=== PATIENT | female | born 1995 | race African-American/Black ===

== ENCOUNTER 2024-09-10 21:26 | Emergency (ER) | payer MEDICAID, SELFPAY ==
[2024-09-10 21:28] VITALS: BMI 40.2
[2024-09-10 21:47] VITALS: BP 136/87; PULSE 117; RESP 18; TEMP 39.2; O2SAT 96
--- NOTE | 2024-09-10 21:50 | XR_ITS ---
Examination: PA lateral chest 2 views TECHNIQUE: Upright PA lateral chest 2 views Exam date and time: September 10, 2024 1003 p.M. INDICATIONS: Coughing beginning 4 days ago. FINDINGS: Normal heart size Reduced inspiratory effort No lobar pneumonia No pulmonary edema IMPRESSION: No pneumonia identified
--- NOTE | 2024-09-10 21:50 | PD.EDRME ---
Rapid Medical Screening Exam [facility] Arrival date/time: 09/10/24 21:26 29-year-old female with no known medical history presents to the emergency room with a chief complaint of fever, cough, congestion x 3 days. Patient also states she has swelling tenderness and warmth to her left breast from breast-feeding. I have greeted and performed a focused initial assessment of this patient. A comprehensive ED assessment and evaluation of the patient, analysis of all test results, and completion of the medical decision making process will be conducted by additional ED providers. Chief Complaint: Chest Pain Vital signs: Vital Signs Temperature 102.5 F H 09/10/24 21:47 Pulse Rate 117 H 09/10/24 21:47 Respiratory Rate 18 09/10/24 21:47 Blood Pressure 136/87 H 09/10/24 21:47 Pulse Oximetry (%) 96 09/10/24 21:47 Oxygen Delivery Method Room Air 09/10/24 21:47 Vital signs reviewed by provider: Yes
[2024-09-10 21:58] VITALS: TEMP 39.2
[2024-09-10] MEDS: ACETAMINOPHEN 500 MG TABLET 1000 MG PO (21:58)
[2024-09-10 22:22] LABS: Lactate (Lactic Acid) 1.4 mMol/L (0.4-2.0)
[2024-09-10 22:24] LABS: Basophils # (Auto) 0.1 Thou/mm3 (0.0-0.2); Basophils % (Auto) 1 % (0-2.5); Eosinophils # (Auto) 0.3 Thou/mm3 (0.0-0.5); Eosinophils % (Auto) 2 % (0-10); Hematocrit 36.7 % (36.0-46.0); Hemoglobin 12.1 g/dL (12.0-16.0); Immature Granulocytes % (Auto) 1 % (0-0); Immature Granulocytes Auto 0.07 Thou/mm3 (0.00-0.00); Lymphocytes % (Auto) 19 % (10-50); Mean Corpuscular Hemoglobin 24.6 pg (25.0-35.0); Mean Corpuscular Volume 75 fL (80-100); Monocytes % (Auto) 10 % (0-12); Neutrophils # (Auto) 7.1 Thou/mm3 (1.8-7.7); Neutrophils % (Auto) 68 % (37-80); Nucleated Red Blood Cell % 0 /100 WBC (0); Platelet Count 331 Thou/mm3 (140-440); RDW Standard Deviation 37.7 fL (36.4-46.3); Red Blood Count 4.91 Miln/mm3 (4.00-5.20); White Blood Count 10.5 Thou/mm3 (3.6-11.0)
[2024-09-10 22:54] LABS: Alanine Aminotransferase 101 U/L (10-49); Albumin/Globulin Ratio 1.5 (1.2-2.2); Alkaline Phosphatase 121 U/L (46-116); Anion Gap 12 (7-16); Aspartate Amino Transferase 72 U/L (0-34); BUN/Creatinine Ratio 11 Ratio (12-20); Bilirubin,Total 0.4 mg/dL (0.3-1.2); Blood Urea Nitrogen 10 mg/dL (9-23); Calcium 10.3 mg/dL (8.3-10.6); Calcium (Corrected) 10.3 mg/dL (8.5-10.1); Carbon Dioxide 22.7 mMol/L (20.0-31.0); Chloride 102 mMol/L (98-107); Creatinine (Component) 0.9 mg/dL (0.6-1.3); Globulin 3.3 gm/dL (2.3-3.5); Glucose 116 mg/dL (74-106); Osmolality,Calculated 273 (275-295); Potassium 3.6 mMol/L (3.4-5.1); Procalcitonin 0.08 ng/ml (0.0-0.49); Sodium 137 mMol/L (136-145); Total Protein 8.3 gm/dL (5.7-8.2); eGFR > 60 See Note
[2024-09-10 23:59] LABS: Collection Type, Urine Clean Catch
[2024-09-11 00:14] LABS: Bilirubin,Urine Negative (Negative); Blood,Urine Negative (Negative); Clarity,Urine Turbid (Clear/Hazy); Color,Urine Yellow (Lt Yel-Yel); Glucose, Urine Negative (Negative); Ketones,Urine Trace (Negative); Leukocyte Esterase,Urine Positive (Negative); Nitrite,Urine Negative (Negative); PH,Urine 6.5 (5.0-7.0); Protein,Urine 1+ (Neg - Trace); RBC,Urine 7 /hpf (0-3); Specific Gravity,Urine 1.043 (1.001-1.035); Squamous Epithelial Cell,Urine 11 /hpf (0-5); WBC,Urine 5 /hpf (0-5)
[2024-09-11 00:20] VITALS: BP 141/87; PULSE 105; RESP 18; TEMP 37.2; O2SAT 95
[2024-09-11 00:26] VITALS: TEMP 37.2
--- NOTE | 2024-09-11 02:16 | PC.NURSE ---
Patient requesting to leave, states she has children at home and is not able to wait any longer. Encouraged patient to wait to be seen by MD, However patient states she feels better and can no longer wait. Patient Alert and oriented. Resp even and unlabored. No acute distress noted. Consequences explained of leaving before being seen by MD including up to even . Patient verbalized understanding and continues to choose to leave. Encouraged patient to follow up with primary MD and if worsening symptoms to return to ED.
== END 2024-09-11 02:23 | disposition left against medical advice (07) ==
PROVIDERS: Nurse Practitioner Family; Emergency Provider Emergency Medicine; PCP Nurse Practitioner Family
DX: R50.9 Fever, unspecified (principal); R05.9 Cough, unspecified; R09.81 Nasal congestion; R07.9 Chest pain, unspecified; Z53.29 Procedure and treatment not carried out because of patient's decision for other reasons
CPT/HCPCS: 36415; 71046; 80053; 81001; 83605; 84145; 85025; 87040; 87086; 87400; 87811; 99281; A9270

== ENCOUNTER 2025-03-20 11:09 | Emergency (ER) | payer MEDICAID, SELFPAY ==
[2025-03-20 11:09] VITALS: BMI 40.9
[2025-03-20 11:19] VITALS: BP 122/87; PULSE 70; RESP 18; TEMP 36.8; O2SAT 96; BMI 41.1
--- NOTE | 2025-03-20 11:26 | XR_ITS ---
Examination: Abdomen sonogram, Limited Date and time of exam: March 20, 2025, 1132 hrs. Indications: Epigastric pain nausea vomiting beginning 5 days ago Technique: Real-time sandy scale transabdominal sonographic images of the upper abdomen obtained. Findings: Negative for gallstones Gallbladder wall 0.47 cm Common bile duct 0.2 cm Pancreatic head 2.8 cm Liver 15 cm smooth contour fatty infiltration Normal hepatopedal portal venous oh Patent IVC Impression: Suspicious for cholecystitis, recommend HIDA scan or MRCP follow-up
--- NOTE | 2025-03-20 11:27 | PD.EDRME ---
Rapid Medical Screening Exam [facility]ME Arrival date/time: 03/20/25 11:09 29-year-old female with no known medical history presents to the emergency room with a chief complaint of 8 out of 10 epigastric pain that radiates to the right upper quadrant x 5 days. Patient also states she is having some dysuria. I have greeted and performed a focused initial assessment of this patient. A comprehensive ED assessment and evaluation of the patient, analysis of all test results, and completion of the medical decision making process will be conducted by additional ED providers. Chief Complaint: Abdominal Pain Time Seen by Provider: 03/20/25 11:16 Vital signs: Vital Signs Temperature 98.3 F 03/20/25 11:19 Pulse Rate 70 03/20/25 11:19 Respiratory Rate 18 03/20/25 11:19 Blood Pressure 122/87 H 03/20/25 11:19 Pulse Oximetry (%) 96 03/20/25 11:19 Oxygen Delivery Method Room Air 03/20/25 11:19 Vital signs reviewed by provider: Yes
[2025-03-20] MEDS: ONDANSETRON ODT 4 MG TABRAP PO (11:46)
[2025-03-20] MEDS: HYDROcodone/APAP 5/325 TABLET 1 TAB PO (11:46)
[2025-03-20 11:52] LABS: Collection Type, Urine Clean Catch
[2025-03-20 11:59] LABS: Bilirubin,Urine Negative (Negative); Blood,Urine Negative (Negative); Clarity,Urine Clear (Clear/Hazy); Color,Urine Colorless (Lt Yel-Yel); Glucose, Urine Negative (Negative); Ketones,Urine Negative (Negative); Leukocyte Esterase,Urine Positive (Negative); Nitrite,Urine Negative (Negative); PH,Urine 7.0 (5.0-7.0); Protein,Urine Negative (Neg - Trace); RBC,Urine 1 /hpf (0-3); Specific Gravity,Urine 1.011 (1.001-1.035); Squamous Epithelial Cell,Urine 4 /hpf (0-5); Urobilinogen,Urine Negative mg/dL (0.0-1.0); WBC,Urine 9 /hpf (0-5)
[2025-03-20 12:07] LABS: HCG Qualitative,Urine Negative
[2025-03-20 12:20] LABS: Basophils # (Auto) 0.0 Thou/mm3 (0.0-0.2); Basophils % (Auto) 1 % (0-2.5); Eosinophils # (Auto) 0.2 Thou/mm3 (0.0-0.5); Eosinophils % (Auto) 3 % (0-10); Hematocrit 37.5 % (36.0-46.0); Hemoglobin 11.7 g/dL (12.0-16.0); Immature Granulocytes Auto 0.01 Thou/mm3 (0.00-0.00); Lymphocytes # (Auto) 2.4 Thou/mm3 (1.0-4.8); Lymphocytes % (Auto) 44 % (10-50); Mean Corpuscular HGB Conc 31.2 g/dl (31.0-37.0); Mean Corpuscular Hemoglobin 24.4 pg (25.0-35.0); Mean Corpuscular Volume 78 fL (80-100); Monocytes # (Auto) 0.4 Thou/mm3 (0.0-0.8); Monocytes % (Auto) 6 % (0-12); Neutrophils # (Auto) 2.5 Thou/mm3 (1.8-7.7); Neutrophils % (Auto) 46 % (37-80); Nucleated Red Blood Cell # 0.00 Thou/mm3 (0.00-0.00); Nucleated Red Blood Cell % 0 /100 WBC (0); Platelet Count 312 Thou/mm3 (140-440); RDW Standard Deviation 44.8 fL (36.4-46.3); Red Blood Count 4.80 Miln/mm3 (4.00-5.20); White Blood Count 5.5 Thou/mm3 (3.6-11.0)
[2025-03-20 13:11] LABS: Alanine Aminotransferase 26 U/L (10-49); Albumin, Serum 4.4 gm/dL (3.5-5.0); Albumin/Globulin Ratio 1.8 (1.2-2.2); Alkaline Phosphatase 81 U/L (46-116); Anion Gap 7 (7-16); Aspartate Amino Transferase 17 U/L (0-34); BUN/Creatinine Ratio 8 Ratio (12-20); Bilirubin,Total 0.3 mg/dL (0.3-1.2); Blood Urea Nitrogen 6 mg/dL (9-23); Calcium 9.1 mg/dL (8.3-10.6); Calcium (Corrected) 9.1 mg/dL (8.5-10.1); Carbon Dioxide 26.7 mMol/L (20.0-31.0); Chloride 107 mMol/L (98-107); Creatinine (Component) 0.8 mg/dL (0.6-1.3); Estimated Creatinine Clearance 115.1 mL/min (>60); Globulin 2.5 gm/dL (2.3-3.5); Glucose 98 mg/dL (74-106); Lipase 35 U/L (12-53); Osmolality,Calculated 278 (275-295); Potassium 4.0 mMol/L (3.4-5.1); Sodium 141 mMol/L (136-145); Total Protein 6.9 gm/dL (5.7-8.2); eGFR > 60 See Note
[2025-03-20 14:42] VITALS: BP 154/100; PULSE 72; RESP 18; TEMP 36.6; O2SAT 98
--- NOTE | 2025-03-20 15:14 | PC.NURSE ---
PT REPORTS SHE IS HAVING 5/10 ABD PAIN AT THIS TIME. REPORTS SHE GOT MEDICATION EARLIER THAT DID HELP A LITTLE HOWEVER, THE PAIN IS STILL THERE. PT AWAITING EVALUATION FROM ED PROVIDER FOR FURTHER POC. CALL JEFF IN [place] ON TELE.
--- NOTE | 2025-03-20 15:33 | PD.EDABDPN ---
ED Abdominal Pain RME/HPI General Chief Complaint: Abdominal Pain Stated complaint: ABD PAIN X 5 DAYS; TODAY THE WORST Time seen by provider: 03/20/25 11:16 Arrival date/time: 03/20/25 11:09 Limitations: no limitations RME / HPI RME / HPI narrative: 03/20/25 11:09 29-year-old female with no known medical history presents to the emergency room with a chief complaint of 8 out of 10 epigastric pain that radiates to the right upper quadrant x 5 days. Patient also states she is having some dysuria. I have greeted and performed a focused initial assessment of this patient. A comprehensive ED assessment and evaluation of the patient, analysis of all test results, and completion of the medical decision making process will be conducted by additional ED providers. DR. ROJAS MAIN ED EVALUATION: 29 year old female presents to the ED for intermittent abdominal pain beginning 5 days ago. States episodes last 20 minutes and are described as aching in sensation, localized to the epigastric region, rating as moderate. Temporarily relieved with Tylenol and Ibuprofen. Patient reports she has had no change in appetite and ate nano today. However, noticed pain beginning ~ 1 hour after eating. Denies any fevers, chills, chest pain, cough, shortness of breath, vomiting, diarrhea, or urinary symptoms. Related Data Home Medications ?Medication ?Instructions ?Recorded ?Confirmed vits no.126-ferrous fum 1 tab PO QDAY 10/16/23 10/16/23 28 mg iron-folic acid 800 mcg tablet (Classic ) Allergies Allergy/AdvReac Type Severity Reaction Status Date / Time pineapple Allergy Severe Anaphylaxis Verified 03/20/25 11:11 Review of Systems Review of Systems Systems Reviewed: All systems reviewed, normal except as documented Past Medical History Past Medical History CARDIAC: Negative Congestive Heart Failure RESPIRATORY: Negative Chronic Obstructive Pulmonary Disease (COPD) GENITOURINARY: Negative Renal Disease ENDOCRINE: Negative Diabetes Mellitus Type 1 or Diabetes Mellitus Type 2 Social History SMOKING STATUS: Never smoker ED Exam General Limitations: Present no limitations General appearance: Present alert, in no apparent distress and obese Head Head exam: Present atraumatic, normocephalic and normal inspection Eye Eye exam: Present normal appearance, PERRL and EOMI ENT ENT exam: Present normal exam, normal oropharynx and mucous membranes moist Neck Neck exam: Present normal inspection, full ROM and trachea midline Chest Chest inspection: Present normal inspection and symmetric chest wall rise Respiratory Respiratory exam: Present normal lung sounds bilaterally Cardiovascular Cardiovascular exam: Present regular rate, normal rhythm and normal heart sounds Abdominal Exam Abdominal exam: Present soft, tenderness (epigastric tenderness to palpation, no mass ) and normal bowel sounds; Absent distention, guarding, rebound or rigidity Extremities Exam Extremities exam: Present normal inspection and full ROM Back Exam Back exam: Present normal inspection and full ROM Neurological Exam Neurological exam: Present alert, oriented X3 and CN II-XII intact Psychiatric Psychiatric exam: Present normal affect and normal mood Skin Skin exam: Present warm, dry, intact and normal color Course Quality Measures none Orders Category Date Time Status CT Screening NOW Care 03/20/25 15:39 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 Care 03/20/25 15:38 Active Continuous Pulse Oximetry STAT Care 03/20/25 15:38 Completed Insert IV STAT Care 03/20/25 15:38 Active NPO STAT Care 03/20/25 15:[address] abdomen pelvis w con Stat Exams 03/20/25 15:38 Completed US gall bladder Stat Exams 03/20/25 11:26 Completed CBC Stat Lab 03/20/25 12:00 Completed CMP [Comprehensive Metabolic Panel] Stat Lab 03/20/25 12:00 Completed HCG Qualitative,Urine Stat Lab 03/20/25 11:25 Completed Lipase Stat Lab 03/20/25 12:00 Completed Prothrombin Time with INR Stat Lab 03/20/25 15:53 Completed UA [Urinalysis] Stat Lab 03/20/25 11:25 Completed Urinalysis Stat Lab 03/20/25 15:38 Ordered Urine Culture Stat Lab 03/20/25 11:25 Received HYDROcodone*/APAP 5/325 [[place] 5/325] Med 03/20/25 11:27 Discontinued 1 tab PO X1 ONE Morphine Inj Med 03/20/25 15:38 Discontinued 4 mg IVP X1 ONE Ondansetron Inj [Zofran Inj] Med 03/20/25 15:39 Discontinued 4 mg IVP X1 ONE Ondansetron Odt [Zofran Odt] Med 03/20/25 11:27 Discontinued 4 mg PO X1 ONE Sodium Chloride 0.9% 1000 ml [Ns] 1,000 ml Med 03/20/25 15:38 Discontinued IV 999 mls/hr Vital Signs Vital signs: Vital Signs Temperature 98.3 F 03/20/25 11:19 Pulse Rate 70 03/20/25 11:19 Respiratory Rate 18 03/20/25 11:19 Blood Pressure 122/87 H 03/20/25 11:19 Pulse Oximetry (%) 96 03/20/25 11:19 Oxygen Delivery Method Room Air 03/20/25 11:19 Pulse ox is 96% on room air which is adequate. Abdominal Pain MDM MDM Narrative MDM Narrative:: I, Aimee Saunders, am scribing for and in the presence of Dr. Rojas. The abdomen CT was unremarkable however the ultrasound was suspicious for cholecystitis. Advised the patient follow up tomorrow for MRCP. Patient data External records reviewed:: [facility] previous records (I reviewed ED visit on 10/22/2022 ) Clinical information provided by:: patient Social determinants that could affect healthcare access:: none Patient has the following chronic illnesses:: None reported How is presenting disease/condition affected by chronic disease/condition?: no chronic disease Evaluation data The following diagnostics were reviewed and interpreted by me:: lab results and radiology exam(s) Lab and/or radiology exams considered but not ordered:: None Interpretation Summary: Ordering Physician: Yossi Mead Date of Service: 03/20/25 Procedure(s): US gall bladder Accession Number(s): [id number] cc: Yossi Mead; Duglas Benton MD; Philippe Mcmahon MD~ Examination: Abdomen sonogram, Limited Date and time of exam: March 20, 2025, 1132 hrs. Indications: Epigastric pain nausea vomiting beginning 5 days ago Technique: Real-time sandy scale transabdominal sonographic images of the upper abdomen obtained. Findings: Negative for gallstones Gallbladder wall 0.47 cm Common bile duct 0.2 cm Pancreatic head 2.8 cm Liver 15 cm smooth contour fatty infiltration Normal hepatopedal portal venous oh Patent IVC Impression: Suspicious for cholecystitis, recommend HIDA scan or MRCP follow-up Dictated By: Duglas Benton MD Signed By: <Electronically signed by Duglas Benton MD in OV> 03/20/25 1154 Ordering Physician: Juan Rojas MD Date of Service: 03/20/25 Procedure(s): CT abdomen pelvis w con Accession Number(s): [id number] cc: Juan Rojas MD; Duglas Benton MD; Philippe Mcmahon MD~ Examination: CT abdomen with intravenous contrast CT pelvis with intravenous contrast 2-D coronal reconstructions 2-D sagittal reconstructions Date and time of exam:March 20, 2025 1641 hours INDICATIONS: Epigastric pain and abdominal pain nausea fever beginning 5 days ago. CTDI: vol (mGy) 13.9 DLP: (mGycm) 684. Technique: Multiple axial sections of the abdomen and pelvis have been obtained. 64 slice high-resolution scanner used. 3 mm axial sections have been obtained, post intravenous injection of 60 cc Isovue-370 2-D sagittal, coronal reconstructions obtained. Low dose protocols were performed. One or more of the following dose reduction techniques were used; automated exposure control, adjustment of the mA and/or KV according to patient size, use of iterative reconstruction technique. Findings: No focal liver or splenic lesions No gallstones No pancreatic mass 3.9 cm upper pole left renal cyst No renal or ureteral calculi, no hydronephrosis Aorta normal size Normal appendix Anteverted uterus No adnexal mass No bladder mass or bladder calculi No bowel obstruction No diverticulitis IMPRESSION: Negative for pancreatitis No renal or ureteral calculi Normal appendix No bowel obstruction diverticulitis or free air Dictated By: Duglas Benton MD Signed By: <Electronically signed by Duglas Benton MD in OV> 03/20/25 2727 Medications / Prescriptions Medications or Prescriptions considered but not ordered:: None Medication administrations:: Medication Administration History Discontinued Medications Hydrocodone Bitart/Acetaminophen (Hydrocodone/Apap 5/325 Tablet) 1 tab PO X1 ONE Stop: 03/20/25 11:28 Last Admin: 03/20/25 11:46 Dose: 1 tab Documented By: RIGOBERTO Sodium Chloride (Ns) 1,000 mls @ 999 mls/hr IV .Q1H1M ONE Stop: 03/20/25 16:38 Last Infusion: 03/20/25 17:09 Dose: Infused Documented By: Admin: 03/20/25 16:08 Dose: 999 mls/hr Documented By: TM Morphine Sulfate (Morphine Sulf Inj 10 Mg/Ml Vial) 4 mg IVP X1 ONE Stop: 03/20/25 17:38 Last Admin: 03/20/25 16:09 Dose: 4 mg Documented By: TM Ondansetron HCl (Ondansetron Odt 4 Mg Tabrap) 4 mg PO X1 ONE; Protocol Stop: 03/20/25 11:28 Last Admin: 03/20/25 11:46 Dose: 4 mg Documented By: RIGOBERTO Ondansetron HCl (Ondansetron Inj 2 Mg/Ml Inj 2 Ml) 4 mg IVP X1 ONE Stop: 03/20/25 15:40 Last Admin: 03/20/25 16:08 Dose: 4 mg Documented By: RICA See above Consultations Consultation(s) initiated? (list below): No Diagnosis Differential diagnosis abdominal pain: abdominal pain, constipation and other (gastritis ) Most likely diagnosis given after review of the tests above:: Abdominal pain, resolved Admission Indicated Admission indicated?: not indicated Admission Request Was there a request for admission?: No Disposition Plan Disposition Plan: Discharge Discharge Attestation Discharge Attestation: The patient and all family members were given an opportunity to ask questions and understood the discharge instructions. Discharge instructions specifically effects, indications for sooner follow up or return to the emergency department, and the expected course of current diagnosis. Patient condition: Stable Discharge Plan Plan Patient Disposition: HOME (Self Care) Prescriptions/Referrals Prescriptions/Med Rec: No Action Classic 28 mg iron- 800 mcg tablet 1 tab PO QDAY Patient Comments: TAKE 1 TABLET BY MOUTH EVERY DAY Referrals: Philippe Mcmahon MD [Primary Care Provider] - In 1 week Problem List Clinical Impression: Abdominal pain Patient/Caregiver Discharge Instructions Education Materials: ED Abdominal Pain Unkn Cause Fem Additional Instructions: Please return tomorrow morning for MRCP or sooner if your symptoms worsen. Print Language: Kinyarwanda Stand Alone Forms: Alexsandra Award Info., Patient Portal Info Letter
--- NOTE | 2025-03-20 15:38 | XR_ITS ---
Examination: CT abdomen with intravenous contrast CT pelvis with intravenous contrast 2-D coronal reconstructions 2-D sagittal reconstructions Date and time of exam:March 20, 2025 1641 hours INDICATIONS: Epigastric pain and abdominal pain nausea fever beginning 5 days ago. CTDI: vol (mGy) 13.9 DLP: (mGycm) 684. Technique: Multiple axial sections of the abdomen and pelvis have been obtained. 64 slice high-resolution scanner used. 3 mm axial sections have been obtained, post intravenous injection of 60 cc Isovue-370 2-D sagittal, coronal reconstructions obtained. Low dose protocols were performed. One or more of the following dose reduction techniques were used; automated exposure control, adjustment of the mA and/or KV according to patient size, use of iterative reconstruction technique. Findings: No focal liver or splenic lesions No gallstones No pancreatic mass 3.9 cm upper pole left renal cyst No renal or ureteral calculi, no hydronephrosis Aorta normal size Normal appendix Anteverted uterus No adnexal mass No bladder mass or bladder calculi No bowel obstruction No diverticulitis IMPRESSION: Negative for pancreatitis No renal or ureteral calculi Normal appendix No bowel obstruction diverticulitis or free air
[2025-03-20 15:57] VITALS: PULSE 66
[2025-03-20] MEDS: SODIUM CHLORIDE 0.9% 1000 ML 1,000 ML 999 ML IV (16:08)
[2025-03-20] MEDS: ONDANSETRON INJ 2 MG/ML INJ 2 ML 4 MG IVP (16:08)
[2025-03-20] MEDS: MORPHINE SULF INJ 10 MG/ML VIAL 4 MG IVP (16:09)
[2025-03-20 16:11] VITALS: BP 110/81; PULSE 62; RESP 18; O2SAT 97
[2025-03-20 17:09] LABS: INR 1.0 (0.9-1.3); Prothrombin Time 11.4 Seconds (9.0-12.2)
[2025-03-20 18:13] VITALS: BP 124/73; PULSE 68; RESP 18; TEMP 36.9; O2SAT 98
== END 2025-03-20 18:52 | disposition home or self-care (01) ==
PROVIDERS: Nurse Practitioner Family; Emergency Provider Family Medicine; PCP Obstetrics & Gynecology
DX: R10.13 Epigastric pain (principal); R11.2 Nausea with vomiting, unspecified; R50.9 Fever, unspecified
CPT/HCPCS: 36415; 74177; 76705; 80053; 81001; 81025; 83690; 85025; 85610; 87086; 96361; 96374; 96375; 99283; A4649; J2270; J2405; J7030; Q0162; Q9967; A9270

== ENCOUNTER 2025-07-21 16:49 | Emergency (ER) | payer MEDICAID, SELFPAY ==
[2025-07-21 16:49] VITALS: BMI 43.0
[2025-07-21 17:05] VITALS: BP 146/88; PULSE 79; RESP 18; TEMP 37.1; O2SAT 99
--- NOTE | 2025-07-21 17:10 | XR_ITS ---
Examination: Abdomen sonogram, Limited Date and time of exam: July 21, 2025, 1724 hours INDICATIONS: Abdominal pain nausea and vomiting beginning 3 days ago Technique: Real-time sandy scale transabdominal sonographic images of the upper abdomen obtained. Findings: Normal gallbladder Normal common bile duct 0.3 cm Pancreatic head 2.2 cm Liver 13.5 cm no liver lesions Normal hepatopetal portal venous flow Patent IVC IMPRESSION: Normal gallbladder Normal common bile duct
--- NOTE | 2025-07-21 17:11 | PD.EDRME ---
Rapid Medical Screening Exam [facility]ME Arrival date/time: 07/21/25 16:49 30-year-old female presents to the emergency department for complaint of nausea vomiting and abdominal pain ongoing x 3 days Chief Complaint: Abdominal Pain Vital signs: Vital Signs Temperature 98.7 F 07/21/25 17:05 Pulse Rate 79 07/21/25 17:05 Respiratory Rate 18 07/21/25 17:05 Blood Pressure 146/88 H 07/21/25 17:05 Pulse Oximetry (%) 99 07/21/25 17:05 Oxygen Delivery Method Room Air 07/21/25 17:05 Vital signs reviewed by provider: Yes Exam: On exam well-appearing does not appear look toxic Clinical Impression: Labs and imaging obtained
[2025-07-21] MEDS: ONDANSETRON ODT 4 MG TABRAP PO (17:43)
[2025-07-21 18:19] LABS: Collection Type, Urine Clean Catch
[2025-07-21 18:26] LABS: Basophils # (Auto) 0.1 Thou/mm3 (0.0-0.2); Basophils % (Auto) 1 % (0-2.5); Eosinophils # (Auto) 0.2 Thou/mm3 (0.0-0.5); Eosinophils % (Auto) 2 % (0-10); Hematocrit 35.7 % (36.0-46.0); Hemoglobin 11.0 g/dL (12.0-16.0); Immature Granulocytes Auto 0.03 Thou/mm3 (0.00-0.00); Lymphocytes # (Auto) 2.7 Thou/mm3 (1.0-4.8); Lymphocytes % (Auto) 38 % (10-50); Mean Corpuscular HGB Conc 30.8 g/dl (31.0-37.0); Mean Corpuscular Hemoglobin 23.7 pg (25.0-35.0); Mean Corpuscular Volume 77 fL (80-100); Monocytes # (Auto) 0.5 Thou/mm3 (0.0-0.8); Monocytes % (Auto) 7 % (0-12); Neutrophils # (Auto) 3.6 Thou/mm3 (1.8-7.7); Neutrophils % (Auto) 51 % (37-80); Nucleated Red Blood Cell # 0.00 Thou/mm3 (0.00-0.00); Nucleated Red Blood Cell % 0 /100 WBC (0); Platelet Count 313 Thou/mm3 (140-440); RDW Standard Deviation 41.6 fL (36.4-46.3); Red Blood Count 4.64 Miln/mm3 (4.00-5.20); White Blood Count 7.0 Thou/mm3 (3.6-11.0)
[2025-07-21 18:42] LABS: Alanine Aminotransferase 20 U/L (10-49); Albumin, Serum 5.0 gm/dL (3.5-5.0); Albumin/Globulin Ratio 1.9 (1.2-2.2); Alkaline Phosphatase 81 U/L (46-116); Anion Gap 9 (7-16); Aspartate Amino Transferase 19 U/L (0-34); BUN/Creatinine Ratio 10 Ratio (12-20); Bilirubin,Total 0.2 mg/dL (0.3-1.2); Blood Urea Nitrogen 8 mg/dL (9-23); Calcium 8.9 mg/dL (8.3-10.6); Calcium (Corrected) 8.9 mg/dL (8.5-10.1); Carbon Dioxide 26.4 mMol/L (20.0-31.0); Chloride 106 mMol/L (98-107); Creatinine (Component) 0.8 mg/dL (0.6-1.3); Estimated Creatinine Clearance 116.9 mL/min (>60); Globulin 2.7 gm/dL (2.3-3.5); Glucose 102 mg/dL (74-106); Lipase 36 U/L (12-53); Osmolality,Calculated 279 (275-295); Potassium 4.4 mMol/L (3.4-5.1); Sodium 141 mMol/L (136-145); Total Protein 7.7 gm/dL (5.7-8.2); eGFR > 60 See Note
[2025-07-21 18:57] LABS: Bacteria,Urine 1+; Bilirubin,Urine Negative (Negative); Blood,Urine 2+ (Negative); Clarity,Urine Clear (Clear/Hazy); Color,Urine Lt-Yellow (Lt Yel-Yel); Culture Indicated,Urine Contaminated; Glucose, Urine Negative (Negative); Ketones,Urine Negative (Negative); Leukocyte Esterase,Urine Positive (Negative); Nitrite,Urine Negative (Negative); PH,Urine 7.0 (5.0-7.0); Protein,Urine Negative (Neg - Trace); RBC,Urine 21 /hpf (0-3); Specific Gravity,Urine 1.020 (1.001-1.035); Squamous Epithelial Cell,Urine 17 /hpf (0-5); Urobilinogen,Urine Negative mg/dL (0.0-1.0); WBC,Urine 10 /hpf (0-5)
[2025-07-21 19:16] LABS: HCG Qualitative,Urine Negative
--- NOTE | 2025-07-21 19:28 | EDNOTE_ITS ---
ED General RME/HPI General Chief complaint: Abdominal Pain Stated complaint: nausea X3 days Time Seen by Provider: 07/21/25 18:48 Arrival date/time: 07/21/25 16:49 CC: Abdominal pain HPI onset starting 3 days ago patient has epigastric right upper quadrant abdominal pain with nausea. Patient states when she tries to eat she throws up. Patient denies fever chills diarrhea shortness of breath difficulty breathing. RME / HPI RME / HPI narrative: 07/21/25 16:49 30-year-old female presents to the emergency department for complaint of nausea vomiting and abdominal pain ongoing x 3 days Exam: On exam well-appearing does not appear look toxic Impression: Labs and imaging obtained Related Data Home Medications ?Medication ?Instructions ?Recorded ?Confirmed vits no.126-ferrous fum 1 tab PO QDAY 4 10/16/23 28 mg iron-folic acid 800 mcg tablet (Classic ) Previous Rx's ?Medication ?Instructions ?Recorded famotidine 20 mg tablet 20 mg PO QDAY #14 tabs 07/21 ondansetron 4 mg disintegrating 4 mg PO Q8H #14 tabs 1 09/21/24 tablet Allergies Allergy/AdvReac Type Severity Reaction Status Date / Time pineapple Allergy Severe Anaphylaxis Verified 07/21/25 16:51 Review of Systems Review of Systems Narrative Review of Systems: GEN: No fever, no chills, no weight loss EYES: No discharge, no visual changes, no pain HEENT: No ear pain, no congestion, no sore throat PULM: No shortness of breath, no cough, no congestion CV: No chest pain, no dyspnea on exertion, no palpitations GI: No nausea, no vomiting, no diarrhea, + pain, no constipation : No frequency, no urgency, no dysuria MUSC/SKEL: No joint pain, no back pain SKIN: No rash PSYCH: No hallucinations, no depression HEME/LYMPH: No easy bleeding or bruising tendencies NEURO: No weakness, no headache Past Medical History Past Medical History CARDIAC: Negative Cardiac Disorders or Congestive Heart Failure RESPIRATORY: Positive Asthma; Negative Chronic Obstructive Pulmonary Disease (COPD) GENITOURINARY: Negative Renal Disease ENDOCRINE: Negative Diabetes Mellitus Type 1 or Diabetes Mellitus Type 2 HEMATOLOGIC: Negative Sickle Cell Disease Social History SMOKING STATUS: Never smoker ED Exam Narrative Physical exam: [General: Morbid obesity not in cot no acute distress Head normocephalic HEENT: Within acceptable limits Neck is supple nontender Chest equal chest rise nontender to palpation Respiratory: Clear to auscultation no wheezes crackles or rubs CV: Rate rhythm is regular no murmurs rubs or clicks Abdomen: Very mild tenderness to epigastrium in the right upper quadrant no rebound tenderness no reflexive guarding. No left upper or lower quadrant pain with palpation. Back: No CVA tenderness no spinous process tenderness from cervical spine thoracic and lumbar spine Skin: Intact no petechiae rash induration ulceration or crepitus Extremities: Moving all extremity against resistance cap refill less than 2 seconds neurosensory intact Neuro: Awake alert oriented x3 Glascow coma 15 no focal deficits] Course Course Course Narrative: I suspect reflux is more the culprit as the gallbladder is completely normal the patient has no transaminitis or T. bili elevation will discharge the patient home with nausea medicine and H1 sia. Quality Measures none Orders Category Date Time Status US gall bladder Stat Exams 07/21/25 17:10 Completed CBC Stat Lab 07/21/25 18:05 Completed Comprehensive Metabolic Panel Stat Lab 07/21/25 18:05 Completed HCG Qualitative,Urine Stat Lab 07/21/25 18:10 Completed Lipase Stat Lab 07/21/25 18:05 Completed UA, C/S IF [Urinalysis, C/S if Indicated] Stat Lab 07/21/25 18:10 Completed Ondansetron Odt [Zofran Odt] Med 07/21/25 17:10 Discontinued 4 mg PO X1 ONE Vital Signs Vital signs: Vital Signs Temperature 98.7 F 07/21/25 17:05 Pulse Rate 79 07/21/25 17:05 Respiratory Rate 18 07/21/25 17:05 Blood Pressure 146/88 H 07/21/25 17:05 Pulse Oximetry (%) 99 07/21/25 17:05 Oxygen Delivery Method Room Air 07/21/25 17:05 Discharge Plan Plan Patient Disposition: HOME (Self Care) Patient condition on transfer: Stable Prescriptions/Referrals Prescriptions/Med Rec: New famotidine 20 mg tablet 20 mg PO QDAY Qty: 14 0RF ondansetron 4 mg tablet,disintegrating 4 mg PO Q8H Qty: 14 0RF No Action Classic 28 mg iron- 800 mcg tablet 1 tab PO QDAY Patient Comments: TAKE 1 TABLET BY MOUTH EVERY DAY Referrals: Lang Scott MD [Physician, Family Practice] - In 1 week Problem List Clinical Impression: Epigastric pain, Nausea Patient/Caregiver Discharge Instructions Other Activity Instructions:: Take the medications as prescribed avoid greasy spicy or fatty foods and follow-up with your primary care doctor. Education Materials: ED Epigastric Pain (Uncertain Cause) Print Language: Lebanese Stand Alone Forms: Alexsandra Award Info., Patient Portal Info Letter, Work/School Release PA/MEDICAL INVESTIGATOR Supervising Physician MARY/MEDICAL INVESTIGATOR Supervising Physician: Piotr Gonzalez ENP [facility] Clinical Information Provided by: patient Medical Records reviewed [facility] Meds/Rx considered, not ordered None Labs/Rad/Tests considered, not ordered None Chronic Illness/Social Conditions Explain: Morbid obesity EKG EKG not done Labs Labs: interpreted by me Lab(s) Interpretation(s): CBC shows no leukocytosis H&H of 11.0 and 35.7 respectively no thrombocytopenia CMP shows no significant electrolyte imbalances renal impairment transaminitis or T. bili elevation Lipase at 36. Urine is negative for UTI and is contaminated. Imaging Imaging interpretation: interpreted by me Imaging Interpretation(s): normal gallbladder Medication Administration(s) Medication Administration History Discontinued Medications Ondansetron HCl (Ondansetron Odt 4 Mg Tabrap) 4 mg PO X1 ONE; Protocol Stop: 07/21/25 17:11 Last Admin: 07/21/25 17:43 Dose: 4 mg Documented By:
[2025-07-21 19:40] VITALS: BP 138/82; PULSE 76; RESP 16; TEMP 36.7; O2SAT 100
== END 2025-07-21 19:45 | disposition home or self-care (01) ==
LOC: SERX 20:16
PROVIDERS: Nurse Practitioner Primary Care; Emergency Provider Emergency Medicine
DX: R10.13 Epigastric pain (principal); R11.2 Nausea with vomiting, unspecified
CPT/HCPCS: 36415; 76705; 80053; 81001; 81025; 83690; 85025; 99283; Q0162